=== PATIENT | female | born 1965 | race Caucasian/White ===

== ENCOUNTER → 2020-12-17 | Outpatient (CLI) | payer BC, OTHER ==
[~2020-12-17] MED LIST: CRESTOR10 MG PO; HYDROXYZINE PAM25 MG PO; LISINOPRIL-HCT1 EAC2 PO; NORCO 7.5-3251 EACH PO; PREDNISONE20 MG PO; PROAIR HFA8.5 GM INH; PROTONIX 40 MG40 M1 PO; PROZAC40 MG PO
[2020-12-18 10:14] LABS: VITAMIN D, 25-HYDROXY 27.1 ng/mL (30.0-100.0)
[2020-12-18 15:14] LABS: ALDOLASE 4.5 U/L (3.3-10.3)
== END ==
LOC: LAB 08:35
PROVIDERS: Internal Medicine
DX: M25.50 Pain in unspecified joint (principal); M79.10 Myalgia, unspecified site; D89.89 Other specified disorders involving the immune mechanism, not elsewhere classified; E55.9 Vitamin D deficiency, unspecified
CPT/HCPCS: 36415; 82085; 82550; 82728; 83520